=== PATIENT | female | born 1945 | race African-American/Black ===

== ENCOUNTER → 2023-04-12 | Outpatient (CLI) | payer MEDICARE, BC ==
[~2023-04-12] MED LIST: ALPR0.5T PO; ATOR40TA70 PO; DULO20CA18 PO; MULT-1203 PO; TRIA1TAB92 PO
== END | disposition home or self-care (01) ==
LOC: LAB 12:08
PROVIDERS: ATTEND Internal Medicine Gastroenterology
DX: R10.84 Generalized abdominal pain (principal); K59.00 Constipation, unspecified; K58.9 Irritable bowel syndrome, unspecified
CPT/HCPCS: 74018